=== PATIENT | male | born 1995 | race Caucasian/White ===

== ENCOUNTER 2023-06-03 02:30 | Emergency (ER) | payer OTHER, SELFPAY ==
[2023-06-03] VITALS (7 sets, daily range): BP systolic 137–164; BP diastolic 66–88; PULSE 70–96; RESP 14–21; TEMP 36.6–36.7; O2SAT 92–100
[2023-06-03] MEDS: HALOPERIDOL LACTATE 5 MG/ML VIAL IV PUSH (03:07)
[2023-06-03] MEDS: diphenhydrAMINE HCl INJ 50 MG/ML VIAL 25 MG IV PUSH (03:07)
[2023-06-03] MEDS: LACTATED RINGERS 1,000 ML 999 ML IV CONT ×2 (03:07→04:11)
[2023-06-03 03:21] LABS: Basophils Absolute Auto 0.1 K/mm3 (0.0-0.1); Basophils Percent Auto 0.4 % (0.2-1.2); Eosinophils Percent Auto 0.1 % (0-4.4); Hematocrit 53.1 % (42.0-52.0); Hemoglobin 19.6 g/dL (14.0-18.0); Immature Granulocyte Absolute 0.09 K/mm3 (0.00-0.031); Immature Granulocyte Percent A 0.6 % (0-0.5); Lymphocytes Absolute Auto 1.45 K/mm3 (0.9-3.2); Lymphocytes Percent Auto 9.3 % (18.3-44.2); Mean Corpuscular HGB Conc 36.9 g/dl (32-36); Mean Corpuscular Hemoglobin 31.5 pg (26-34); Mean Corpuscular Volume 85.2 fl (80-100); Mean Platelet Volume 9.7 fl (7.4-10.4); Monocytes Percent Auto 6.4 % (2.6-8.5); Neutrophils Percent Auto 83.2 % (45.5-73.1); Platelet Count Result 362 k/mm3 (150-375); Red Blood Count 6.23 M/mm3 (4.6-6.20); Red Cell Distribution Width 12.2 % (11.5-14.5); White Blood Count 15.6 K/mm3 (4.5-10.0)
[2023-06-03 03:30] LABS: Alanine Aminotransferase 30 U/L (6-50); Albumin Level 5.4 g/dL (3.5-5.1); Alkaline Phosphatase 89 U/L (38-126); Anion Gap 17 mmol/L (8-16); Aspartate Amino Transferase 26 U/L (17-59); Bilirubin,Total 1.5 mg/dL (0.2-1.3); Blood Urea Nitrogen 24 mg/dL (9-20); Calcium 10.7 mg/dL (8.4-10.2); Carbon Dioxide 19 mmol/L (22-30); Chloride 100 mmol/L (98-107); Estimated CRCL calculation 120 ml/min; Estimated Glomerular Filt Rate > 60; Glucose 143 mg/dL (65-110); Lipase 25 U/L (23-300); Potassium 3.6 mmol/L (3.4-5.0); Sodium 136 mmol/L (137-145)
--- NOTE | 2023-06-03 04:49 | ED.NAVMDI ---
HPI - Nausea/Vomiting/Diarrhea General Chief complaint: Abdominal Pain Stated complaint: abd pain Time Seen by Provider: 06/03/23 02:38 History of Present Illness HPI Narrative: 28-year-old male presenting with nausea and vomiting, he has not been able to keep anything down for last 5 days, he has had similar symptoms on and off over the last few months, which coincidentally was when he started smoking marijuana. No abdominal pain Related Data Allergies Allergy/AdvReac Type Severity Reaction Status Date / Time No Known Allergies Allergy Verified 06/03/23 02:48 Review of Systems Review of Systems: CONST: No fever. HEENT: No sore throat C/V: No chest pain RESP: No cough GI: Reports nausea, vomiting : No dysuria. M/S: No joint pain. SKIN: No rash. NEURO: [No headache or focal numbness or weakness] PSYCH: [No depression] Exam Narrative: EXAMINATION OF ORGAN SYSTEMS/BODY AREAS: Constitutional: Vital signs per nursing GENERAL:[No acute distress, non-toxic appearing.] HEAD: Normal with no signs of head trauma. EYES: EOMI, conjunctiva normal ENT: Hearing grossly intact LUNGS: Nonlabored breathing. HEART: [Regular rate and rhythm] ABD: [Soft], nontender to palpation EXT: Normal range of motion SKIN: [No rashes or lesions.] NEURO: [Alert and oriented x 3. No gross focal sensory or strength deficits.] PSYCH: Normal affect Course Vital Signs Vital signs: Vital Signs Temperature 98 F 06/03/23 02:44 Pulse Rate 90 06/03/23 02:44 Respiratory Rate 15 06/03/23 02:44 Blood Pressure 164/88 H 06/03/23 02:44 Pulse Oximetry 100 06/03/23 02:44 Oxygen Delivery Room Air 06/03/23 02:44 Temperature 98 F 06/03/23 02:44 Pulse Rate 70 06/03/23 04:36 Respiratory Rate 15 06/03/23 04:36 Blood Pressure 137/69 06/03/23 04:36 Pulse Oximetry 97 06/03/23 04:36 Oxygen Delivery Room Air 06/03/23 02:44 MDM - Nausea/Vomiting/Diarrhea MDM Narrative Medical decision making narrative: 28-year-old male presenting with nausea and vomiting and inability to keep anything down for 5 days, vital signs within acceptable limits, he would like to have an IV with fluids, his abdomen is soft and nontender and I therefore have very low concern for any acute abdominal surgical emergency and will reevaluate after giving him Haldol for what I presume/suspect may be cannabinol hyperemesis syndrome. CMP and lipase are within acceptable limits, CBC does show elevated white count and hemoglobin which I suspect is likely from hemoconcentration from dehydration. Fluids are started and after reevaluation, patient states that he is feeling much better, he is no longer nauseous. He tolerated an entire bottle of water and a cup of juice here and has not had any return of his nausea. He will like to go home at this time, I do feel this is reasonable, I have had a long discussion with the patient regarding marijuana cessation for at least 2 to 3 months and to return here if he has any return of symptoms or worsening symptoms, and he is agreeable to this. Father at bedside agreeable to the plan. Lab Data 06/03/23 03:11 06/03/23 03:11 Labs: Lab Results 06/03/23 Range/Units 03:11 WBC 15.6 H (4.5-10.0) K/mm3 RBC 6.23 H (4.6-6.20) M/mm3 Hgb 19.6 H (14.0-18.0) g/dL Hct 53.1 H (42.0-52.0) % MCV 85.2 (80-100) fl MCH 31.5 (26-34) pg MCHC 36.9 H (32-36) g/dl RDW 12.2 (11.5-14.5) % Plt Count 362 (150-375) k/mm3 MPV 9.7 (7.4-10.4) fl Immature Gran % (Auto) 0.6 H (0-0.5) % Neut % (Auto) 83.2 H (45.5-73.1) % Lymph % (Auto) 9.3 L (18.3-44.2) % [facility] % (Auto) 6.4 (2.6-8.5) % Eos % (Auto) 0.1 (0-4.4) % Baso % (Auto) 0.4 (0.2-1.2) % Lymph # (Auto) 1.45 (0.9-3.2) K/mm3 [facility] # (Auto) 1.0 H (0.1-0.6) K/mm3 Eos # (Auto) 0.0 (0-0.3) K/mm3 Baso # (Auto) 0.1 (0.0-0.1) K/mm3 Abs Immat Gran (auto) 0.09 H (0.00-0.031) K/mm3 Absolute Neuts
== END 2023-06-03 05:02 | disposition home or self-care (01) ==
PROVIDERS: Emergency Provider Emergency Medicine
DX: R11.2 Nausea with vomiting, unspecified (principal)
CPT/HCPCS: 36415; 80053; 83690; 85025; 96361; 96374; 96375; 99284; J1200; J1630; J7120

== ENCOUNTER 2024-02-14 19:00 | Emergency (ER) | payer OTHER, SELFPAY ==
[2024-02-14 19:04] VITALS: BP 113/73; PULSE 81; RESP 16; TEMP 36.6; O2SAT 97
[2024-02-14 19:26] VITALS: BP 149/84; PULSE 96; RESP 12; O2SAT 100
[2024-02-14 19:47] VITALS: BP 136/77; PULSE 70; RESP 16; O2SAT 100
--- NOTE | 2024-02-14 19:54 | ED.GIBLEED ---
HPI - GI Bleed General Chief complaint: Recheck/Abnormal Lab/Rx Stated complaint: hemorrhoid problems Time Seen by Provider: 02/14/24 19:23 History of Present Illness HPI Narrative: Patient states that for the last 6 weeks he has noticed intermittent spots of blood when he wipes his bottom, especially when he is constipated and using pressure to push, sometimes it feels like a sharp twinge, today noticed some bright red blood when he wiped, so stuffed some toilet paper there, no pain today. Had used topical lidocaine in the past with good effect. He has noticed that he frequently will either have diarrhea or constipation but no GI diagnosis yet Related Data Allergies Allergy/AdvReac Type Severity Reaction Status Date / Time No Known Allergies Allergy Verified 06/03/23 02:48 Review of Systems Review of Systems: All systems reviewed & are unremarkable except as noted in HPI and below Exam Narrative: EXAMINATION OF ORGAN SYSTEMS/BODY AREAS: Constitutional: Vital signs per nursing GENERAL:[No acute distress, non-toxic appearing.] HEAD: Normal with no signs of head trauma. EYES: EOMI, conjunctiva normal ENT: Hearing grossly intact LUNGS: Nonlabored breathing. HEART: [Regular rate and rhythm] ABD: [Soft], [nontender to palpation] RECTAL: One small external hemorrhoid that is not actively bleeding; no tenderness on rectal exam. Grossly brown stool. EXT: Normal range of motion SKIN: see above NEURO: [Alert and oriented x 3. No gross focal sensory or strength deficits.] PSYCH: Normal affect Course Vital Signs Vital signs: Vital Signs Temperature 97.9 F 02/14/24 19:04 Pulse Rate 81 02/14/24 19:04 Respiratory Rate 16 02/14/24 19:04 Blood Pressure 113/73 02/14/24 19:04 Pulse Oximetry 97 02/14/24 19:04 Oxygen Delivery Room Air 02/14/24 19:04 Temperature 97.9 F 02/14/24 19:04 Pulse Rate 70 02/14/24 19:47 Respiratory Rate 16 02/14/24 19:47 Blood Pressure 136/77 02/14/24 19:47 Pulse Oximetry 100 02/14/24 19:47 Oxygen Delivery Room Air 02/14/24 19:04 MDM - GI Bleed MDM Narrative Medical decision making narrative: Patient presents with bright red blood/spotting intermittently when he is wiping after bowel movements, last time was today. Does admit that he was constipated today. Denying any pain at this time, on exam I did note one small external hemorrhoid, did not see any obvious fissure, no gross blood on rectal exam and no tenderness, nurse Tyrone in room as school office assistant during this exam. Since he has had intermittent diarrhea or constipation for years at this time I think he could benefit from GI follow-up as well as General surgery follow-up for hemorrhoid removal eyes needed, he is otherwise very well appearing, there is barely any blood loss, I do feel he is stable for discharge at this time, all questions from he and his father at bedside answered, stable for discharge at this time, return precautions discussed. Discharge Plan Discharge Clinical Impression: Bright red rectal bleeding Patient Disposition: Home, Self-Care Condition: Stable Instructions: Antibiotic Form, Hemorrhoids (ED) Additional Instructions: Please follow up with the GI doctor and the general surgeon for further workup and treatment; you can always return to the ER for any further issues. Prescriptions: New polyethylene glycol 3350 [Miralax] 17 gram/dose powder 17 g PO DAILY Qty: 238 0RF No Action metoclopramide HCl [Reglan] 10 mg tablet 10 mg PO Q6H PRN (Reason: nausea and vomiting) Qty: 10 0RF famotidine 20 mg tablet 20 mg PO DAILY Qty: 30 0RF Follow-up/Referrals: PHYSICIAN,SUPERVISOR MAINTENA[employer]CE [employer] [Non-Staff] - Steve Chiu MD [Physician] - 2 Days Prateek Andersen MD [Physician] - 2 Days
== END 2024-02-14 20:03 | disposition home or self-care (01) ==
LOC: ANHED 19:59
PROVIDERS: Emergency Provider Emergency Medicine
DX: K62.5 Hemorrhage of anus and rectum (principal)
CPT/HCPCS: 99283

== ENCOUNTER 2024-08-20 23:09 | Emergency (ER) | payer OTHER, SELFPAY ==
[2024-08-20 23:09] VITALS: BP 121/65; PULSE 86; RESP 16; TEMP 36.8; O2SAT 97
--- NOTE | 2024-08-20 23:53 | ED.GENADULT ---
HPI - General Adult General Chief complaint: Unspecified Stated complaint: hemorroid busted Time Seen by Provider: 08/20/24 23:35 History of Present Illness HPI narrative: Patient is a 29-year-old male who presents to the emergency department this evening concerned that either a boil or hemorrhoid busted in his rectum. Patient states that he noticed some mild bleeding but denies any pain with defecation and denies any previous history of rectal bleeding. Patient does admit to history of hemorrhoids. He is currently denying any additional symptoms including any lightheadedness, dizziness, abdominal pain, nausea, vomiting, melena, hematochezia, fevers or chills. No additional symptoms or concerns at this time. Related Data Home Medications Medication Instructions Recorded Confirmed No Home Medications 08/20/24 Allergies Allergy/AdvReac Type Severity Reaction Status Date / Time No Known Allergies Allergy Verified 08/20/24 23:13 Review of Systems Review of Systems: All systems are reviewed and are negative unless stated otherwise in the HPI. Exam Narrative: General: Alert, awake, afebrile, in no acute distress. HEENT: PERRL, no rhinorrhea, no post nasal drip, oropharynx clear. Cardiovascular: Regular rate and rhythm, no murmurs, rubs or gallops, no peripheral edema. Respiratory: Clear to auscultation bilaterally, no tachypnea, no wheezing, no rhonchi, no rubs, no respiratory distress. Abdomen: Soft, nontender, nondistended, no rebound, no guarding, no peritoneal signs. Rectal: Exam performed with presence of female nurse progress developer revealing good rectal tone, no evidence of external hemorrhoids or boils are noted, no active bleeding. Musculoskeletal: No joint swelling or deformity, normal muscle tone. Skin: No rashes or petechia, no signs of infection. Neurological: Alert and oriented to person, place, and time. Follows all commands. No focal deficits, speech is clear and fluent. Course Vital Signs Vital signs: Vital Signs Temperature 98.2 F 08/20/24 23:09 Pulse Rate 86 08/20/24 23:09 Respiratory Rate 16 08/20/24 23:09 Blood Pressure 121/65 08/20/24 23:09 Pulse Oximetry 97 08/20/24 23:09 Oxygen Delivery Room Air 08/20/24 23:09 Temperature 98.0 F 08/21/24 00:11 Pulse Rate 87 08/21/24 00:11 Respiratory Rate 17 08/21/24 00:11 Blood Pressure 119/68 08/21/24 00:11 Pulse Oximetry 97 08/21/24 00:11 Oxygen Delivery Room Air 08/20/24 23:09 Medical Decision Making MDM Narrative Medical decision making narrative: The patient was evaluated by myself in the emergency department. History is obtained from patient who is an independent historian and physical exam was performed. External medical records were reviewed at this time. Patient was informed that he internal hemorrhoids and that my normal bleeding or spotting is nothing to be concerned of. Patient was informed that if he was to develop heavy rectal bleeding or lightheadedness or dizziness that he will need to return to the emergency department. He was informed that he will be provided with a GI referral. Differential diagnosis considerations include external hemorrhoids, internal hemorrhoids, pilonidal cyst. Comorbidities impacting this visit include history of hemorrhoids. I have evaluated and discussed social determinants of health with the patient that could potentially impact subsequent diagnosis and treatment plans. On repeat assessment of the patient, reevaluation revealed that the patient is doing well and is in no acute distress. Patient symptoms have improved since he arrived to our emergency department. Repeat vital signs were all reviewed and noted to be stable. Differential diagnosis and treatment plan were discussed with the patient at bedside. Patient agrees with discussion and after shared medical decision making agrees with discharge. All questions were answered to the patient's satisfaction.
[2024-08-21 00:11] VITALS: BP 119/68; PULSE 87; RESP 17; TEMP 36.7; O2SAT 97
== END 2024-08-21 00:15 | disposition home or self-care (01) ==
PROVIDERS: Emergency Provider Emergency Medicine; PCP Internal Medicine
DX: K64.8 Other hemorrhoids (principal)
CPT/HCPCS: 99281

== ENCOUNTER 2024-10-14 00:48 | Day surgery (SDC) | payer OTHER, SELFPAY ==
[2024-10-02 15:24] VITALS: BMI 29.7
--- NOTE | 2024-10-14 08:45 | WPDANESEPPF ---
Anes - Initial Pre Proc Eval Procedure: Operation Date: 10/14/24 13:30 Proposed Procedures p Colonoscopy - Kolton Hood MD Date/Time: 10/14/24 08:45 Surgeon: Kolton Hood MD Pre Op Diagnosis: Hemorrhoids Patient Data Age: 29 Gender: M Height: 1.68 m Weight: 83.6 kg Allergies Allergy/AdvReac Type Severity Reaction Status Date / Time No Known Allergies Allergy Verified 10/02/24 15:24 Home Medications ?Medication ?Instructions ?Recorded ?Confirmed ?Type No Home Medications 08/20/24 History Patient hx anesthesia problems: none Family hx anesthesia problems: none Results Review: All pre-operative results and documents have been reviewed as part of the pre-operative evaluation. [facility] Social History Social History Smoking status: Never smoker Substance use type: marijuana Other substance usage details: MJ daily Living arrangements: with family Spiritual care concerns: No Anes - Eval Final PreProcedure Day of Procedure 10/14/24 08:45 Results Review: All pre-operative results and documents have been reviewed as part of the pre-operative evaluation. Informed Consent: The patient's anesthetic plan and its attendant risks and benefits were discussed with the patient/family/POA. Questions were solicited and answers provided to the satisfaction of the patient/family/POA.
[2024-10-14 11:02] VITALS: BP 125/81; PULSE 79; RESP 18; TEMP 36; O2SAT 100
[2024-10-14] MEDS: LACTATED RINGERS 1,000 ML 150 ML IV CONT (11:08)
--- NOTE | 2024-10-14 11:11 | WPDANESEPPF ---
Anes - Initial Pre Proc Eval Procedure: Operation Date: 10/14/24 13:30 Proposed Procedures p Colonoscopy - Kolton Hood MD Date/Time: 10/14/24 11:11 Surgeon: Kolton Hood MD Pre Op Diagnosis: Hemorrhoids Patient Data Age: 29 Gender: M Height: 1.68 m Weight: 77.6 kg Last Vital Signs Temp 36.0 C L 10/14/24 11:02 Pulse 79 10/14/24 11:02 Resp 18 10/14/24 11:02 BP 125/81 10/14/24 11:02 Pulse Ox 100 10/14/24 11:02 O2 Del Method Room Air 10/14/24 11:02 Allergies Allergy/AdvReac Type Severity Reaction Status Date / Time No Known Allergies Allergy Verified 10/14/24 10:59 Home Medications ?Medication ?Instructions ?Recorded ?Confirmed ?Type No Home Medications 08/20/24 10/14/24 History Patient hx anesthesia problems: none Family hx anesthesia problems: none Results Review: All pre-operative results and documents have been reviewed as part of the pre-operative evaluation. [facility] Past Medical History Medical History (Updated 10/14/24 @ 11:14 by Drake Logan DO) Neurofibromatosis Social History Social History Smoking status: Never smoker Substance use type: marijuana Other substance usage details: MJ daily Living arrangements: with family Spiritual care concerns: No Anes - Eval Final PreProcedure Day of Procedure 10/14/24 11:11 Patient weight: overweight Heart: regular rate and rhythm Lungs: clear to auscultation Airway: Mallampati scale class II Neurological: alert and oriented Last oral intake: >/= 8 hours ASA classification: III Emergent: no Anesthetic plan: proceed Anesthesia type and monitoring: general GIVS and standard monitoring Results Review: All pre-operative results and documents have been reviewed as part of the pre-operative evaluation. Informed Consent: The patient's anesthetic plan and its attendant risks and benefits were discussed with the patient/family/POA. Questions were solicited and answers provided to the satisfaction of the patient/family/POA.
--- NOTE | 2024-10-14 11:48 | PM.IMHP ---
H&P: HPI History of Present Illness Date/Time: 10/14/24 11:48 Chief Complaint: Rectal bleeding Narrative: patient has been having intermittent rectal bleeding for several months. 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 Review of Systems Review of Systems: All systems reviewed & are unremarkable except as noted in HPI and below PMFSH Past Medical History Medical History (Updated 10/14/24 @ 11:14 by Drake Logan DO) Neurofibromatosis Social History Social History Smoking status: Never smoker Substance use type: marijuana Other substance usage details: daily Living arrangements: with family Spiritual care concerns: No Meds Home Medications and Allergies Home Medications ?Medication ?Instructions ?Recorded ?Confirmed ?Type No Home Medications 08/20/24 10/14/24 History Allergies Allergy/AdvReac Type Severity Reaction Status Date / Time No Known Allergies Allergy Verified 10/14/24 10:59 Vital Signs Vital Signs - 24 hr 10/14/24 11:02 Temperature 96.8 F L Pulse Rate 79 Respiratory Rate 18 Blood Pressure 125/81 Pulse Oximetry 100 Oxygen Delivery Room Air Exam Const: General: cooperative and healthy appearing Resp: Effort & Inspection: normal respiratory effort and able to speak in complete sentences Auscultation: clear to auscultation bilaterally Cardio: Rate: regular rate Rhythm: regular rhythm GI: Inspection: normal to inspection GI Palp: No No hepatosplenomegaly present Auscultation: normal bowel sounds Rectal Exam: deferred Skin: General skin exam: normal color Psych: Appearance: grossly normal Mental Status: mental status grossly normal Assessment and Plan Assessment and plan (1) Hematochezia: Code(s): K92.1 - Melena Status: Acute Assessment and Plan: The patient is deemed a good candidate for the procedure. most likely source of bleeding: Internal hemorrhoids. Consent signed. Will proceed.
[2024-10-14] MEDS: SIMETHICONE ORAL SUSPENSION 20 MG/0.3 ML 30 ML BOTTLE 0.6 ML IRRIGATION (11:57)
[2024-10-14 12:07] VITALS: BP 106/69; PULSE 80; RESP 20; O2SAT 97
[2024-10-14 12:17] VITALS: BP 98/50; PULSE 77; RESP 17; O2SAT 99
[2024-10-14 12:27] VITALS: BP 110/70; PULSE 65; RESP 20; O2SAT 99
== END 2024-10-14 12:35 | disposition home or self-care (01) ==
PROVIDERS: PCP Internal Medicine; Referring Provider Nurse Practitioner Family; Visit Provider Internal Medicine Gastroenterology
PROC: 0DJD8ZZ Inspection of Lower Intestinal Tract, Via Natural or Artificial Opening Endoscopic (ICD-10-PCS; CPT 45378; principal; 2024-10-14 13:30)
DX: K62.5 Hemorrhage of anus and rectum (principal); K64.0 First degree hemorrhoids; Q85.00 Neurofibromatosis, unspecified; F12.90 Cannabis use, unspecified, uncomplicated
CPT/HCPCS: 45378; J2003; J2704; J7120